=== PATIENT | female | born 1985 | race Caucasian/White ===

== ENCOUNTER 2025-06-09 22:59 | Emergency (ER) | payer SELFPAY ==
[2025-06-09] MEDS ORDERED: predniSONE 20 MG TAB ONE (23:30)
[2025-06-09] MEDS ORDERED: Albuterol 200 PUFF (6.7GM INHALER) ONE (23:30)
== END 2025-06-09 23:53 | disposition home or self-care (01) ==
LOC: BURERS 22:59
DX: J06.9 Acute upper respiratory infection, unspecified (principal); Z59.71 Insufficient health insurance coverage
CPT/HCPCS: 71046; 87428; J7512

== ENCOUNTER 2025-06-29 23:45 | Emergency (ER) | payer SELFPAY ==
[2025-06-30] MEDS ORDERED: predniSONE 20 MG TAB ONE (00:20)
== END 2025-06-30 00:30 | disposition home or self-care (01) ==
LOC: BURERS 23:45
DX: L73.2 Hidradenitis suppurativa (principal); Z23 Encounter for immunization
CPT/HCPCS: J7512